=== PATIENT | male | born 1955 | race Caucasian/White ===

== ENCOUNTER 2019-01-15 09:34 | Outpatient (CLI) | payer OTHER, SELFPAY ==
[2019-01-15 11:14] LABS: Anion Gap 9.1 mmol/L (3-11); BUN 13 mg/dL (7-18); CO2 29.9 mmol/L (21.0-32.0); CREATININE 1.04 mg/dL (0.70-1.30); Calcium 8.9 mg/dL (8.5-10.1); Calculated LDL 117 mg/dL; Chloride 105 mmol/L (98-107); Cholesterol 194 mg/dL (50-200); Glucose 108 mg/dL (70-100); HDL Cholesterol 30 mg/dL (40-60); Potassium 4.3 mmol/L (3.5-5.1); Sodium 144 mmol/L (136-145); Triglyceride 237 mg/dL (30-150)
== END 2019-01-15 09:54 ==
PROVIDERS: PCP Family Medicine; Visit Provider Family Medicine
DX: I10 Essential (primary) hypertension (principal)
CPT/HCPCS: 36415; 80048; 80061

== ENCOUNTER 2020-03-14 12:56 | Outpatient (REF) | payer OTHER, SELFPAY ==
[2020-03-14 15:41] LABS: ALT 34 U/L (16-63); AST 22 U/L (15-37); Albumin 4.2 g/dL (3.4-5.0); Alkaline Phosphatase 92 U/L (46-116); Anion Gap 8.2 mmol/L (3-11); BUN 12 mg/dL (7-18); Bilirubin, Total 0.3 mg/dL (0.2-1.0); CO2 25.8 mmol/L (21.0-32.0); CREATININE 0.93 mg/dL (0.70-1.30); Calcium 8.2 mg/dL (8.5-10.1); Calculated LDL 124 mg/dL (<100); Chloride 105 mmol/L (98-107); Cholesterol 203 mg/dL (<200); Glucose 105 mg/dL (74-106); HDL Cholesterol 30 mg/dL (40-60); Potassium 3.6 mmol/L (3.5-5.1); Sodium 139 mmol/L (136-145); Total Protein 7.3 g/dL (6.4-8.2); Triglyceride 248 mg/dL (<150)
[2020-03-14 16:26] LABS: Hemoglobin A1C 5.7 % (<5.7)
[2020-03-14 22:14] LABS: PSA, Screening 1.2 ng/mL (0.0-4.5)
== END 2020-03-14 13:16 ==
LOC: LBN 12:56
PROVIDERS: PCP Nurse Practitioner Family; Visit Provider Nurse Practitioner Family
DX: Z00.00 Encounter for general adult medical examination without abnormal findings (principal); E78.5 Hyperlipidemia, unspecified; Z12.5 Encounter for screening for malignant neoplasm of prostate
CPT/HCPCS: 80053; 80061; 84153; 83036

== ENCOUNTER 2020-04-15 19:00 | Outpatient (REF) | payer OTHER, SELFPAY ==
[2020-04-15 13:47] LABS: Anion Gap 10.2 mmol/L (3-11); BUN 18 mg/dL (7-18); CO2 30.8 mmol/L (21.0-32.0); CREATININE 1.1 mg/dL (0.70-1.30); Calcium 8.5 mg/dL (8.5-10.1); Chloride 100 mmol/L (98-107); Glucose 125 mg/dL (74-106); Magnesium 2.2 mg/dL (1.8-2.4); Potassium 3.1 mmol/L (3.5-5.1); Sodium 141 mmol/L (136-145)
[2020-04-15 14:27] LABS: Vitamin D 25 Total 11.8 ng/ml (30-100)
[2020-04-18 12:03] LABS: Parathyroid Hormone,Intact 75 pg/mL (19-88)
== END 2020-04-15 19:01 | disposition home or self-care (01) ==
LOC: LBN 19:00
PROVIDERS: PCP Nurse Practitioner Family; Visit Provider Nurse Practitioner Family
DX: E83.51 Hypocalcemia (principal)
CPT/HCPCS: 80048; 82306; 83735; 83970

== ENCOUNTER 2020-05-20 14:52 | Outpatient (REF) | payer OTHER, SELFPAY ==
[2020-05-20 14:02] LABS: Anion Gap 9.8 mmol/L (3-11); BUN 23 mg/dL (7-18); CO2 27.2 mmol/L (21.0-32.0); Calcium 8.9 mg/dL (8.5-10.1); Calculated LDL 67 mg/dL (<100); Chloride 103 mmol/L (98-107); Cholesterol 133 mg/dL (<200); Glucose 98 mg/dL (74-106); HDL Cholesterol 36 mg/dL (40-60); Potassium 3.5 mmol/L (3.5-5.1); Sodium 140 mmol/L (136-145); Triglyceride 152 mg/dL (<150)
== END 2020-05-20 14:53 | disposition home or self-care (01) ==
LOC: LBN 14:52
PROVIDERS: PCP Nurse Practitioner Family; Visit Provider Nurse Practitioner Family
DX: I10 Essential (primary) hypertension (principal); E78.5 Hyperlipidemia, unspecified
CPT/HCPCS: 80048; 80061

== ENCOUNTER 2020-06-24 13:47 | Outpatient (REF) | payer OTHER, SELFPAY ==
[2020-06-27 05:04] LABS: Vitamin D 25 Total 29.2 ng/mL (30-100)
== END 2020-06-24 13:48 | disposition home or self-care (01) ==
LOC: LBN 13:47
PROVIDERS: PCP Nurse Practitioner Family; Visit Provider Nurse Practitioner Family
DX: E55.9 Vitamin D deficiency, unspecified (principal)
CPT/HCPCS: 82306

== ENCOUNTER 2020-07-04 02:47 | Outpatient (CLI) | payer OTHER, SELFPAY ==
--- NOTE | 2020-07-04 10:35 | DI.RAD_ITS ---
EXAM: XR KNEE RT 3V AP,LAT,SHAILA CLINICAL HISTORY: right knee pain, hx of meniscus tear,S83.241S. TECHNIQUE: 2D digital imaging was performed. COMPARISON: No exams were available for comparison FINDINGS: There is no evidence of fracture but there does appear to be a joint effusion signifying internal juan diego angement. There are mild degenerative changes in the medial compartment with mild narrowing of this compartment evident on the standing weight-bearing view. Small calcification noted medially in the r egion of the MCL. Lateral compartment exhibits normal height. Patellofemoral compartment appears un remarkable on the lateral view.. IMPRESSION: Some degenerative change in the medial compartment. Joint effusion noted. DATA REPOSITORY: RADIATION DOSE DELIVERED:
== END 2020-07-04 03:07 ==
PROVIDERS: PCP Nurse Practitioner Family; Visit Provider Nurse Practitioner Family
DX: M25.561 Pain in right knee (principal); M25.461 Effusion, right knee; M17.11 Unilateral primary osteoarthritis, right knee
CPT/HCPCS: 73562

== ENCOUNTER 2020-08-05 03:10 | Outpatient (CLI) | payer OTHER, SELFPAY ==
--- NOTE | 2020-08-05 12:35 | DI.MRI_ITS ---
Exam(s) MR LOWER JOINT RT WO EXAM: MR LOWER JOINT RT WO CLINICAL HISTORY: hx of medial meniscus tear,WORSENING PAIN, TEAR MEDIAL MENISCUS,S83.241A TECHNIQUE: Multiplanar multisequence MRI was performed.. COMPARISON: MR MRI R LOWER JOINT WO CONT from 02/11/2015 FINDINGS: MR examination of the knee was performed according to the usual protocol. There is a large knee joint effusion. No significant bony signal abnormality seen. Medial tibiofemoral joint: There is moderate articular cartilage thinning and surface irregularity of the medial femoral condyle and medial tibial plateau. There is complex tear of the posterior horn a nd body of the medial meniscus. There is probable tear of the deep fibers of the medial collateral l igament and meniscal femoral ligament. Mildly abnormal signal noted in superficial MCL. Lateral tibiofemoral joint: The articular cartilage of the femur and tibia appears well maintained. The meniscus and attachments appear intact. The lateral collateral ligament complex and posterolater al corner structures appear intact. Patellofemoral joint and extensor mechanism: There is marked thinning of the articular cartilage of t he femoral trochlea laterally and there is slight thinning of the lateral aspect the patellar articul ar cartilage with mild signal abnormalities and mild surface irregularity. The superior and inferior patellar fat pads appear normal with no signal abnormality. The quadriceps tendon and patellar tendon appear predominantly intact except for slight edema at the patellar tendon attachments on patella and anterior tibial tubercle period. The medial and lateral r etinacula appear intact. Cruciate ligaments: Cruciate ligaments and attachments appear normal with no evidence of a tear. Tibiofibular joint: No specific abnormality involving the tibiofibular joint. IMPRESSION: Negative knee MRI. Medial meniscal tear and associated medial collateral ligament tear as described above. Degenerative articular cartilage abnormalities of lateral aspect of the patellofemoral joint and the medial tibiofemoral joint as described above. DATA REPOSITORY:
== END 2020-08-05 03:30 ==
PROVIDERS: PCP Nurse Practitioner Family; Visit Provider Nurse Practitioner Family
DX: M25.561 Pain in right knee (principal); S83.241A Other tear of medial meniscus, current injury, right knee, initial encounter; S83.411A Sprain of medial collateral ligament of right knee, initial encounter
CPT/HCPCS: 73721

== ENCOUNTER 2021-04-10 01:38 | Outpatient (CLI) | payer OTHER, SELFPAY ==
[2021-04-10 11:02] LABS: Anion Gap 10.7 mmol/L (3-11); BUN 13 mg/dL (7-18); CO2 28.3 mmol/L (21.0-32.0); CREATININE 0.9 mg/dL (0.70-1.30); Calcium 8.6 mg/dL (8.5-10.1); Calculated LDL 66 mg/dL (<100); Chloride 101 mmol/L (98-107); Cholesterol 151 mg/dL (<200); Glucose 112 mg/dL (74-106); HDL Cholesterol 45 mg/dL (40-60); Potassium 3.1 mmol/L (3.5-5.1); Sodium 140 mmol/L (136-145); Triglyceride 203 mg/dL (<150)
[2021-04-10 11:23] LABS: Vitamin D 25 Total 24.5 ng/mL (30-100)
== END 2021-04-10 01:39 | disposition home or self-care (01) ==
LOC: LBO 01:38
PROVIDERS: PCP Nurse Practitioner Family; Visit Provider Nurse Practitioner Family
DX: E78.5 Hyperlipidemia, unspecified (principal); I10 Essential (primary) hypertension; E55.9 Vitamin D deficiency, unspecified
CPT/HCPCS: 36415; 80048; 80061; 82306

== ENCOUNTER 2022-05-28 04:06 | Outpatient (CLI) | payer MEDICARE, SELFPAY ==
[2022-05-28 12:48] LABS: Anion Gap 6.4 mmol/L (3-11); BUN 14 mg/dL (7-18); CO2 31.6 mmol/L (21.0-32.0); CREATININE 1.2 mg/dL (0.70-1.30); Calcium 8.9 mg/dL (8.5-10.1); Calculated LDL 56 mg/dL (<100); Chloride 102 mmol/L (98-107); Cholesterol 130 mg/dL (<200); Glucose 121 mg/dL (74-106); HDL Cholesterol 36 mg/dL (40-60); Potassium 3.4 mmol/L (3.5-5.1); Sodium 140 mmol/L (136-145); Triglyceride 193 mg/dL (<150)
[2022-05-28 12:49] LABS: Hemoglobin A1C 5.9 % (<5.7)
== END 2022-05-28 04:07 | disposition home or self-care (01) ==
LOC: LOS 04:06
PROVIDERS: PCP Nurse Practitioner Family; Visit Provider Nurse Practitioner Family
DX: I10 Essential (primary) hypertension (principal); R73.03 Prediabetes
CPT/HCPCS: 36415; 80048; 80061; 83036

== ENCOUNTER 2023-05-23 12:56 | Outpatient (CLI) | payer MEDICARE, SELFPAY ==
[2023-05-23 13:25] LABS: Hemoglobin A1C 6.5 % (<5.7)
[2023-05-23 14:35] LABS: Anion Gap 11.1 mmol/L (3-11); BUN 17 mg/dL (7-18); CO2 26.9 mmol/L (21.0-32.0); CREATININE 1.1 mg/dL (0.70-1.30); Calcium 8.7 mg/dL (8.5-10.1); Chloride 103 mmol/L (98-107); Estimated GFR 73.58 (mL/min/1.73m2); Glucose 133 mg/dL (74-106); Potassium 3.1 mmol/L (3.5-5.1); Sodium 141 mmol/L (136-145)
[2023-05-23 16:59] LABS: Vitamin D 25 Total 55.7 ng/mL (30-100)
[2023-05-23 22:18] LABS: PSA, Screening 0.8 ng/mL (<=4.5)
[2023-05-23 22:59] LABS: Hepatitis C Ab w Rflx HCV PCR Negative (Negative)
== END 2023-05-23 12:57 | disposition home or self-care (01) ==
LOC: LBO 12:57
PROVIDERS: PCP Nurse Practitioner Family; Visit Provider Nurse Practitioner Family
DX: Z00.00 Encounter for general adult medical examination without abnormal findings (principal); I10 Essential (primary) hypertension; E78.5 Hyperlipidemia, unspecified; R73.03 Prediabetes; Z12.5 Encounter for screening for malignant neoplasm of prostate; E55.9 Vitamin D deficiency, unspecified
CPT/HCPCS: 80048; 82306; 84153; 86803; 83036

== ENCOUNTER 2023-06-01 19:29 | Emergency (ER) | payer MEDICARE, SELFPAY ==
[2023-06-01] VITALS (14 sets, daily range): BP systolic 146–222; BP diastolic 90–117; PULSE 77–116; RESP 16; TEMP 36.4; O2SAT 93–99
[2023-06-01] MEDS: LORazepam 1 MG TAB PO (20:22)
[2023-06-01] MEDS: Metoprolol 25 MG TAB PO (20:22)
[2023-06-01 20:26] LABS: Abs Immature Grans 0.05 10^3/uL (0.0-0.06); Absolute Basophil Count 0.06 10^3/uL (0.0-0.2); Absolute Eosinophil Count 0.13 10^3/uL (0.0-0.7); Absolute Lymphocyte Count 1.31 10^3/uL (1.2-3.4); Absolute Monocyte Count 0.62 10^3/uL (0.1-0.8); Absolute Neutrophil Count 8.29 10^3/uL (1.2-6.7); Basophils % 0.6; Eosinophils % 1.2; HCT 44.2 % (40.0-50.0); HGB 15.4 g/dL (13.5-17.5); Immature Grans % 0.5; Lymphocytes % 12.5; MCH 31.2 pg (27.0-33.0); MCHC 34.8 % (32.0-36.0); MCV 90 fL (80-95); MPV 8.9 fL (8.0-11.0); Monocytes % 5.9; Neutrophils % 79.3; Platelet Count 222 10^3/uL (130-400); RBC 4.93 10^6/uL (4.36-5.78); RDW 12.3 % (11.8-14.1); RDW-SD 40.5 fL; WBC 10.46 10^3/uL (4.4-10.8)
[2023-06-01 20:53] LABS: Troponin I < 50 ng/L (< or =60)
[2023-06-01 21:04] LABS: ALT 62 U/L (16-63); AST 30 U/L (15-37); Albumin 3.9 g/dL (3.4-5.0); Alkaline Phosphatase 77 U/L (46-116); Anion Gap 14.4 mmol/L (3-11); BUN 19 mg/dL (7-18); Bilirubin, Total 0.3 mg/dL (0.2-1.0); CO2 24.6 mmol/L (21.0-32.0); CREATININE 1.1 mg/dL (0.70-1.30); Calcium 8.8 mg/dL (8.5-10.1); Chloride 103 mmol/L (98-107); Estimated GFR 73.58 (mL/min/1.73m2); Glucose 209 mg/dL (74-106); Magnesium 1.6 mg/dL (1.8-2.4); Potassium 3.3 mmol/L (3.5-5.1); Sodium 142 mmol/L (136-145); Total Protein 7.5 g/dL (6.4-8.2)
--- NOTE | 2023-06-01 21:04 | ED.GENADUL_ITS ---
Discharge Plan Disposition Patient Disposition: Home Condition: Stable Discharge Details Clinical Impression: Anxiety, Hypertension, Hypomagnesemia Primary Care Provider: Tabby Gardner ED Provider: Don Azevedo Home Meds and New Rx's Prescriptions: New metoprolol tartrate 25 mg tablet 25 mg PO BID Qty: 60 0RF Continued coenzyme Q10 [CoQ-10] 30 mg capsule 30 mg PO DAILY lisinopril 20 mg tablet 20 mg PO DAILY Qty: 90 3RF hydrochlorothiazide 25 mg tablet 25 mg PO DAILY Qty: 90 3RF cholecalciferol (vitamin D3) 50 mcg (2,000 unit) capsule 2,000 unit PO DAILY Qty: 90 3RF Rx Instructions: Take 1 daily potassium chloride 20 mEq tablet extended release 20 meq PO DAILY Qty: 90 3RF rosuvastatin 5 mg tablet 5 mg PO DAILY Qty: 90 3RF Discharge Instructions Instructions: Hypertension (ED), Hypomagnesemia (ED), Anxiety (ED) Additional Instructions: Please use Ativan only for exacerbation of severe anxiety. Please follow-up with a mental health floor care technician. I have have ordered a new blood pressure medicine called metoprolol. Please take this as prescribed and monitor your blood pressure twice a day. Keep a log of your blood pressure. Be sure to discuss this with your primary care physician. Call and speak with her on Saturday to discuss changes. Return to the emergency department immediately for any worsening or new concerning symptoms. Referrals: [facility] [Outside] Tabby Gardner, PHP WEBSITE DEVELOPER [Primary Care Provider] - [facility] General Mode of arrival: ambulatory . Date/Time Provider Initiated Documentation: 06/01/23 19:34 . Limitations to Documentation: no limitations . Information obtained by: patient . HPI Narrative: 67yo male with history og hypertension presents with chief complaint of elevated blood pressure with associated anxiety. Patient notes he checked his blood pressure at home tonight and it was elevated. He recently had lisinopril dose increased from 10mg to 20mg. He has been taking HCTZ and linsinopril as prescribed. His anxiety is moderate and he has associated shortness of breath. He denies associated chest pain. Patient is concerned that his potassium was low the day on routine outpatient labs. He has been taking potassium supplement as prescribed. Related Data Home Medications Medication Instructions Recorded Confirmed coenzyme Q10 30 mg capsule (CoQ-10) 30 mg PO DAILY 05/16/22 06/01/23 hydrochlorothiazide 25 mg tablet 25 mg PO DAILY #90 tabs 04/04/23 06/01/23 cholecalciferol (vitamin D3) 50 2,000 unit PO DAILY #90 caps 05/06/23 06/01/23 mcg (2,000 unit) capsule potassium chloride 20 mEq 20 meq PO DAILY #90 tabs 05/06/23 06/01/23 tablet,extended release rosuvastatin 5 mg tablet 5 mg PO DAILY #90 tabs 05/06/23 06/01/23 lisinopril 20 mg tablet 20 mg PO DAILY #90 tabs 05/20/23 06/01/23 metoprolol tartrate 25 mg tablet 25 mg PO BID #60 tabs 06/01/23 Previous Rx's Medication Instructions Recorded hydrochlorothiazide 25 mg tablet 25 mg PO DAILY #90 tabs 04/04/23 cholecalciferol (vitamin D3) 50 2,000 unit PO DAILY #90 caps 05/06/23 mcg (2,000 unit) capsule potassium chloride 20 mEq 20 meq PO DAILY #90 tabs 05/06/23 tablet,extended release rosuvastatin 5 mg tablet 5 mg PO DAILY #90 tabs 05/06/23 lisinopril 20 mg tablet 20 mg PO DAILY #90 tabs 05/20/23 metoprolol tartrate 25 mg tablet 25 mg PO BID #60 tabs 06/01/23 Allergies Allergy/AdvReac Type Severity Reaction Status Date / Time No Known Allergies Allergy Unverified 06/01/23 19:38 General Stated Complaint: GenMedical WING: 3 Review of Systems All systems reviewed & are unremarkable except as noted in HPI and below Constitutional Constitutional: Denies fever(s) Cardiovascular Cardiovascular: Denies chest pain and Denies lightheadedness Respiratory Respiratory: Reports as per HPI and Denies cough Gastrointestinal Gastrointestinal: Denies abdominal pain Exam Const General: cooperative and no acute distress HENMT Mouth: moist mucous membranes Eyes Conjunctivae: normal conjunctivae Sclera: normal sclerae Resp Auscultation: clear to auscultation bilaterally, no rales, no rhonchi and no wheezes Cardio Jugular venous pressure: no JVD Rate: regular rate and not tachycardic Rhythm: regular rhythm GI Palpation: soft, not firm, no guarding, no masses, not rigid and nontender Skin General skin exam: no rashes or lesions noted Neuro General: patient alert, patient awake, patient oriented x3 and tone normal Extrem General: edema Laterality: bilateral (1+ pitting up to shins) Psych Appearance: grossly normal Mental Status: mental status grossly normal Mood: anxious mood Affect: anxious affect Thought Process: normal Thought Content: normal Insight: insight good Course Vital Signs Vital signs: Vital Signs Temperature 36.4 C L 06/01/23 19:38 Pulse 107 H 06/01/23 19:38 Respiratory Rate 16 06/01/23 19:38 Blood Pressure 222/117 H 06/01/23 19:38 Pulse Oximetry 99 06/01/23 19:38 Temperature 36.4 C L 06/01/23 19:38 Temperature Source Temporal Artery Scan 06/01/23 19:38 Pulse 101 H 06/01/23 21:02 Pulse 105 H 06/01/23 20:00 Respiratory Rate 16 06/01/23 19:38 Respiratory Effort Short of Breath 06/01/23 19:46 Respiratory Depth Normal 06/01/23 19:46 Respiratory Pattern Tachypnea 06/01/23 19:46 Blood Pressure 163/99 H 06/01/23 21:02 Blood Pressure Mean 115 06/01/23 21:02 Blood Pressure Position Sitting 06/01/23 19:38 Pulse Oximetry 93 06/01/23 21:01 Oxygen Delivery Method Room Air 06/01/23 19:46 Oxygen Flow Rate 0 06/01/23 19:38 Pain Level 2 06/01/23 19:38 Lab/Test Results Lab/Test Results: Laboratory Tests Range/Units 06/01/23 20:15 WBC (4.4-10.8) 10^3/uL 10.46 RBC (4.36-5.78) 10^6/uL 4.93 Hgb (13.5-17.5) g/dL 15.4 Hct (40.0-50.0) % 44.2 MCV (80-95) fL 90 MCH (27.0-33.0) pg 31.2 MCHC (32.0-36.0) % 34.8 RDW (11.8-14.1) % 12.3 Plt Count (130-400) 10^3/uL 222 MPV (8.0-11.0) fL 8.9 Immature Gran % 0.5 Neutrophils % 79.3 Lymphocytes % 12.5 Monocytes % 5.9 Eosinophils % 1.2 Basophils % 0.6 Nucleated RBC % (0.0-0.3) % 0.0 Absolute Neutrophils (1.2-6.7) 10^3/uL 8.29 H Absolute Lymphocytes (1.2-3.4) 10^3/uL 1.31 Absolute Monocytes (0.1-0.8) 10^3/uL 0.62 Absolute Eosinophils (0.0-0.7) 10^3/uL 0.13 Absolute Basophils (0.0-0.2) 10^3/uL 0.06 Troponin I (< or =60) ng/L < 50 Medical Decision Making 2099 -- 67yo male with history of hypertension here with elevated blood pressure and anxiety. He has associated SOB and pitting edema in the lower legs. He is saturating well and in no respiratory distress. He is quite hypertensive on arrival 222/117. I am concerned that anxiety is significantly contributing to elevated BP. Consider CHF. Will initiate treatment with anxiolytic - ativan 1mg PO administered. Patient was also givne metoprolol 25mg PO. Plan to check BNP, trop, kidney function and electrolytes. 2119 -- Labs reviewed and trop and BNP nl. Cr nl. Mild hypokalemia, improved from prior. Mild hypomagnesemia noted. Will give mag ox 800mg. 2144 --patient reassessed: Blood pressure much improved. Patient feeling better. Plan for discharge with outpatient follow-up. I recommend the patient follow-up with mental health for his anxiety. I will prescribe a Ativan to be used for severe anxiety exacerbations.. Patient is interested in starting a new antihypertensive. I will prescribe metoprolol and advised he monitor his blood pressure closely as he tapers hydrochlorothiazide. I encouraged him to follow- up with his primary care physician to discuss treatment changes further on Saturday. Usual customary discharge instructions reviewed with the patient. Lab Data Lab results reviewed: Yes I reviewed the patient's lab results. Labs: Laboratory Tests Range/Units 06/01/23 20:15 WBC (4.4-10.8) 10^3/uL 10.46 RBC (4.36-5.78) 10^6/uL 4.93 Hgb (13.5-17.5) g/dL 15.4 Hct (40.0-50.0) % 44.2 MCV (80-95) fL 90 MCH (27.0-33.0) pg 31.2 MCHC (32.0-36.0) % 34.8 RDW (11.8-14.1) % 12.3 Plt Count (130-400) 10^3/uL 222 MPV (8.0-11.0) fL 8.9 Immature Gran % 0.5 Neutrophils % 79.3 Lymphocytes % 12.5 Monocytes % 5.9 Eosinophils % 1.2 Basophils % 0.6 Nucleated RBC % (0.0-0.3) % 0.0 Absolute Neutrophils (1.2-6.7) 10^3/uL 8.29 H Absolute Lymphocytes (1.2-3.4) 10^3/uL 1.31 Absolute Monocytes (0.1-0.8) 10^3/uL 0.62 Absolute Eosinophils (0.0-0.7) 10^3/uL 0.13 Absolute Basophils (0.0-0.2) 10^3/uL 0.06 Sodium (136-145) mmol/L 142 Potassium (3.5-5.1) mmol/L 3.3 L Chloride (98-107) mmol/L 103 Carbon Dioxide (21.0-32.0) mmol/L 24.6 Anion Gap (3-11) mmol/L 14.4 H BUN (7-18) mg/dL 19 H Creatinine (0.70-1.30) mg/dL 1.1 Est GFR (CKD-EPI 2020) (mL/min/1.73m2) 73.58 Glucose (74-106) mg/dL 209 H Calcium (8.5-10.1) mg/dL 8.8 Magnesium (1.8-2.4) mg/dL 1.6 L Total Bilirubin (0.2-1.0) mg/dL 0.3 AST (15-37) U/L 30 ALT (16-63) U/L 62 Alkaline Phosphatase (46-116) U/L 77 Troponin I (< or =60) ng/L < 50 NT-Pro-B Natriuret Pep (<300) pg/mL 59 Total Protein (6.4-8.2) g/dL 7.5 Albumin (3.4-5.0) g/dL 3.9 Quality:SDOH Health Related Social Needs: No Data to Display PFSH All Active Problems (Updated 06/01/23 @ 21:52 by Don Azevedo MD) Hypomagnesemia (Acute) Hypertension (Chronic) Anxiety (Chronic) Vitamin D deficiency (Chronic) Prediabetes (Chronic) Essential hypertension (Chronic) Hyperlipidemia (Chronic) Tear of medial meniscus of right knee (Chronic) Elected to defer surgery 2020 Obesity (BMI 30-39.9) (Chronic) Medical History Cigarette smoker 25 pack-yr hx; declines LDCT Synovial cyst of left popliteal space Major depressive disorder with single episode, in partial remission Surgical History S/P cholecystectomy Family History Mother Pancreatic cancer Father Mesothelioma Sister Stroke Glaucoma Hypertension Dementia Brother Ulcerative colitis Stroke Plasmacytoma Alcohol use disorder Daughter Substance abuse Maternal Grandfather No problems noted. Maternal Grandmother No problems noted. Paternal Grandfather No problems noted. Paternal Grandmother No problems noted. Social History Smoking/Tobacco Use Status: Former Tobacco Use tobacco type: cigarettes and cigars Quit Date: 03/10/21 Pack-years: 25 Tobacco: How many years used: 20 Second Hand Exposure: Yes Smoking risk assessment performed?: Yes Alcohol Intake: current Alcohol Intake frequency: holidays/special occasions only Drug use: Never Substance use type: prescription drug Housing: house current occupation: [employer] Current gender identity: male Duration: > 90 minutes/day Frequency: 5-6 times per week Zaida/Tenriism: No preference Special zaida needs: No Do you feel safe at home: Yes Do you feel safe in your relationship?: Yes
[2023-06-01 21:11] LABS: NT-proBNP 59 pg/mL (<300)
[2023-06-01] MEDS: Magnesium Oxide 400 MG TAB 800 MG PO (21:23)
[2023-06-01 22:32] LABS: TSH (W/Ref FT4) 0.94 uIU/mL (0.36-3.74)
== END 2023-06-01 22:04 | disposition home or self-care (01) ==
PROVIDERS: Emergency Provider Student in an Organized Health Care Education/Training Program; PCP Nurse Practitioner Family
DX: R06.02 Shortness of breath (principal); I10 Essential (primary) hypertension; R60.0 Localized edema; R51.9 Headache, unspecified; F41.9 Anxiety disorder, unspecified; E83.42 Hypomagnesemia
CPT/HCPCS: 80053; 99283; 83735; 83880; 84443; 84484; 85025

== ENCOUNTER 2023-07-08 18:10 | Outpatient (CLI) | payer MEDICARE, SELFPAY ==
[2023-07-08 13:26] LABS: Anion Gap 11.1 mmol/L (3-11); BUN 15 mg/dL (7-18); CO2 24.9 mmol/L (21.0-32.0); CREATININE 1.1 mg/dL (0.70-1.30); Calcium 8.7 mg/dL (8.5-10.1); Chloride 106 mmol/L (98-107); Estimated GFR 73.58 (mL/min/1.73m2); Glucose 116 mg/dL (74-106); Magnesium 2.4 mg/dL (1.8-2.4); Sodium 142 mmol/L (136-145)
== END 2023-07-08 18:11 | disposition home or self-care (01) ==
LOC: LBO 18:11
PROVIDERS: PCP Nurse Practitioner Family; Visit Provider Nurse Practitioner Family
DX: E87.6 Hypokalemia (principal); I10 Essential (primary) hypertension; E83.42 Hypomagnesemia
CPT/HCPCS: 36415; 80048; 83735

== ENCOUNTER 2023-12-17 13:33 | Outpatient (CLI) | payer MEDICARE, SELFPAY ==
[2023-12-17 13:58] LABS: Hemoglobin A1C 5.4 % (<5.7)
[2023-12-18 11:05] LABS: HBs Antibody, Quant <3.1 mIU/mL (See Note); Hep B Surface Ab Negative (See Note); Hepatitis B Core Antibody Negative (Negative); Hepatitis B Surface Antigen Negative (Negative)
[2023-12-18 11:19] LABS: HIV-1/2 Ag & Ab Screen Negative (Negative)
== END 2023-12-17 13:34 | disposition home or self-care (01) ==
LOC: LBO 13:34
PROVIDERS: PCP Nurse Practitioner Family; Visit Provider Nurse Practitioner Family
DX: Z86.39 Personal history of other endocrine, nutritional and metabolic disease (principal); Z11.59 Encounter for screening for other viral diseases; Z11.4 Encounter for screening for human immunodeficiency virus [HIV]
CPT/HCPCS: 36415; 86704; 86706; 87340; 87389; 83036